=== PATIENT | female | born 1960 | race Caucasian/White ===

== ENCOUNTER 2021-05-01 23:24 | Emergency (ER) | payer OTHER ==
[~2021-05-01] VITALS: Ht 165.1 cm; Wt 108.9 kg
[2021-05-01] MEDS ORDERED: ATORVASTATIN CA10 MG (23:30)
[2021-05-01] MEDS ORDERED: [UNRECOGNIZED DRUG - OTHER] (23:31)
[2021-05-02] MEDS ORDERED: DICLOFENAC SODI75 MG PO (00:11)
== END 2021-05-02 00:44 | disposition home or self-care (01) ==
LOC: ER 23:24
DX: S10.83XA Contusion of other specified part of neck, initial encounter (principal); S30.0XXA Contusion of lower back and pelvis, initial encounter; W19.XXXA Unspecified fall, initial encounter; Y93.89 Activity, other specified; Y92.89 Other specified places as the place of occurrence of the external cause; Y99.8 Other external cause status; M54.2 Cervicalgia; M54.5 Low back pain

== ENCOUNTER 2021-12-08 12:47 | Inpatient (IN) | payer OTHER ==
[~2021-12-08] VITALS: Ht 165.1 cm; Wt 95.3 kg
[~2021-12-08 12:47] MED LIST: ATORVASTATIN CA10 MG; DICLOFENAC SODI75 MG PO; [UNRECOGNIZED DRUG - OTHER]
[2021-12-08] MEDS ORDERED: LOSARTAN-HCTZ1 EACH PO (12:51)
[2021-12-08] MEDS ORDERED: SYNTHROID50 MCG PO (12:51)
[2021-12-08] MEDS ORDERED: ST. JOSEPH ASPI81 M2 PO (12:51)
[2021-12-09] MEDS ORDERED: SIMVASTATIN10 MG (11:45)
== END 2021-12-12 16:18 | DRG 743 ==
LOC: ER 12:47 → OB/GYN 18:31
PROVIDERS: ADMIT Obstetrics & Gynecology; ATTEND Obstetrics & Gynecology
PROC: BW21Y0Z Computerized Tomography (CT Scan) of Abdomen and Pelvis using Other Contrast, Unenhanced and Enhanced (ICD-10-PCS; 2021-12-08)
PROC: 0UT70ZZ Resection of Bilateral Fallopian Tubes, Open Approach (ICD-10-PCS; 2021-12-09)
PROC: 0UT20ZZ Resection of Bilateral Ovaries, Open Approach (ICD-10-PCS; 2021-12-09)
PROC: 0UDB7ZZ Extraction of Endometrium, Via Natural or Artificial Opening (ICD-10-PCS; 2021-12-09)
PROC: 0WBH0ZZ Excision of Retroperitoneum, Open Approach (ICD-10-PCS; 2021-12-09)
PROC: 0UT90ZZ Resection of Uterus, Open Approach (ICD-10-PCS; principal; 2021-12-09 11:45)
DX: D25.2 Subserosal leiomyoma of uterus (principal); N84.0 Polyp of corpus uteri; N80.8 Other endometriosis; Z20.822 Contact with and (suspected) exposure to COVID-19; N80.2 Endometriosis of fallopian tube; N80.1 Endometriosis of ovary; N83.291 Other ovarian cyst, right side; N83.292 Other ovarian cyst, left side; N72 Inflammatory disease of cervix uteri